=== PATIENT | male | born 1955 | race Caucasian/White ===

== ENCOUNTER 2017-09-30 12:51 | Emergency (ER) | payer OTHER ==
[~2017-09-30] VITALS: Ht 170.2 cm; Wt 90.7 kg
[2017-09-30] MEDS ORDERED: Coumadin5 MG PO ×3 (18:12→18:29)
[2017-09-30] MEDS ORDERED: Ambien10 MG PO (18:23)
[2017-10-01] MEDS ORDERED: FURO20 PO (11:54)
[2017-10-01] MEDS ORDERED: SPIR25 PO (11:55)
[2017-10-01] MEDS ORDERED: LISI5 PO (11:55)
[2017-10-01] MEDS ORDERED: TAMS.4ER PO (11:56)
[2017-10-01] MEDS ORDERED: CARV3.125 PO (11:57)
== END 2017-09-30 16:18 | disposition home or self-care (01) ==
LOC: ER 12:51
DX: I80.8 Phlebitis and thrombophlebitis of other sites (principal); J44.9 Chronic obstructive pulmonary disease, unspecified
CPT/HCPCS: 93971; 99284

== ENCOUNTER 2017-09-30 18:15 | Emergency (ER) | payer OTHER ==
[~2017-09-30] VITALS: Ht 170.2 cm; Wt 90.7 kg
[~2017-09-30 18:15] MED LIST: Coumadin5 MG PO
[2017-09-30] MEDS ORDERED: Ambien10 MG PO (18:23)
[2017-09-30] MEDS ORDERED: Coumadin5 MG PO (18:29)
[2017-10-01] MEDS ORDERED: FURO20 PO (11:54)
[2017-10-01] MEDS ORDERED: SPIR25 PO (11:55)
[2017-10-01] MEDS ORDERED: LISI5 PO (11:55)
[2017-10-01] MEDS ORDERED: TAMS.4ER PO (11:56)
[2017-10-01] MEDS ORDERED: CARV3.125 PO (11:57)
== END 2017-09-30 19:23 | disposition home or self-care (01) ==
LOC: ER 18:15
DX: I82.622 Acute embolism and thrombosis of deep veins of left upper extremity (principal); I50.9 Heart failure, unspecified; Z79.01 Long term (current) use of anticoagulants; Z79.899 Other long term (current) drug therapy
CPT/HCPCS: 96372; 99283; J1650

== ENCOUNTER 2017-10-01 10:27 | Day surgery (SDC) | payer OTHER ==
[~2017-10-01 10:27] MED LIST changes: +Ambien10 MG PO
[2017-10-01] MEDS ORDERED: FURO20 PO (11:54)
[2017-10-01] MEDS ORDERED: LISI5 PO (11:55)
[2017-10-01] MEDS ORDERED: SPIR25 PO (11:55)
[2017-10-01] MEDS ORDERED: TAMS.4ER PO (11:56)
[2017-10-01] MEDS ORDERED: CARV3.125 PO (11:57)
== END 2017-10-01 12:10 | disposition home or self-care (01) ==
LOC: ATC 10:27
DX: I82.622 Acute embolism and thrombosis of deep veins of left upper extremity (principal); Z79.01 Long term (current) use of anticoagulants
CPT/HCPCS: 96372; J1650

== ENCOUNTER 2017-10-02 09:11 | Day surgery (SDC) | payer OTHER ==
[~2017-10-02 09:11] MED LIST changes: +CARV3.125 PO; +FURO20 PO; +LISI5 PO; +SPIR25 PO; +TAMS.4ER PO
== END 2017-10-02 10:46 | disposition home or self-care (01) ==
LOC: ATC 09:11
DX: I82.622 Acute embolism and thrombosis of deep veins of left upper extremity (principal); Z79.01 Long term (current) use of anticoagulants
CPT/HCPCS: 36416; 85610; 96372; J1650

== ENCOUNTER 2017-10-03 07:10 | Day surgery (SDC) | payer OTHER | END 2017-10-03 10:44 | disposition home or self-care (01) | LOC: ATC 07:10 | DX: I82.622 Acute embolism and thrombosis of deep veins of left upper extremity (principal); Z79.01 Long term (current) use of anticoagulants | CPT/HCPCS: 36416; 85610; 96372; J1650 ==

== ENCOUNTER 2017-10-04 00:19 | Day surgery (SDC) | payer OTHER ==
[2017-10-05] MEDS ORDERED: Lovenox100 MG/1 M SC (11:47)
[2017-10-05] MEDS ORDERED: WARF2.5 PO (11:47)
[2017-10-05] MEDS ORDERED: Coumadin5 MG PO (11:55)
== END 2017-10-04 10:49 | disposition home or self-care (01) ==
LOC: ATC 00:19
DX: I82.622 Acute embolism and thrombosis of deep veins of left upper extremity (principal); Z79.01 Long term (current) use of anticoagulants
CPT/HCPCS: 36416; 85610; 96372; J1650

== ENCOUNTER 2017-10-05 00:30 | Day surgery (SDC) | payer OTHER ==
[2017-10-05] MEDS ORDERED: WARF2.5 PO (11:47)
[2017-10-05] MEDS ORDERED: Lovenox100 MG/1 M SC (11:47)
[2017-10-05] MEDS ORDERED: Coumadin5 MG PO (11:55)
== END 2017-10-05 10:46 | disposition home or self-care (01) ==
LOC: ATC 00:30
DX: I82.622 Acute embolism and thrombosis of deep veins of left upper extremity (principal); Z79.01 Long term (current) use of anticoagulants
CPT/HCPCS: 36416; 85610; 96372; J1650

== ENCOUNTER 2017-10-05 11:01 | Emergency (ER) | payer OTHER ==
[~2017-10-05] VITALS: Ht 170.2 cm; Wt 90.7 kg
[2017-10-05] MEDS ORDERED: WARF2.5 PO (11:47)
[2017-10-05] MEDS ORDERED: Lovenox100 MG/1 M SC (11:47)
[2017-10-05] MEDS ORDERED: Coumadin5 MG PO (11:55)
== END 2017-10-05 11:53 | disposition home or self-care (01) ==
LOC: ER 11:01
DX: R79.1 Abnormal coagulation profile (principal); Z79.899 Other long term (current) drug therapy; Z79.01 Long term (current) use of anticoagulants; Z86.718 Personal history of other venous thrombosis and embolism
CPT/HCPCS: 99283